=== PATIENT | male | born 1960 | race Caucasian/White ===

== ENCOUNTER 2018-11-30 16:41 | Emergency (ER) | payer BC, OTHER ==
[2018-11-30] MEDS ORDERED: Bacitracin Zinc 1 Packet ONE (17:03)
[2018-11-30] MEDS ORDERED: Lidocaine 1% (PF) 30 ML VIAL ONE (17:03)
--- NOTE | 2018-11-30 17:27 | RAD ---
3 views of the right fifth finger: 11/30/2018 COMPARISON: None HISTORY: Injury, crushed finger in a gate FINDINGS: There is soft tissue swelling involving the distal aspect of the fifth finger with an assoc iated laceration along the anterior lateral aspect, adjacent to the distal interphalangeal joint. No associated fracture or dislocation. No radiopaque foreign body. IMPRESSION: Prominent soft tissue injury involving the distal aspect of the fifth digit.
== END 2018-11-30 18:08 | disposition home or self-care (01) ==
LOC: NAV ERS 16:41
DX: S67.196A Crushing injury of right little finger, initial encounter (principal); S61.216A Laceration without foreign body of right little finger without damage to nail, initial encounter; F17.220 Nicotine dependence, chewing tobacco, uncomplicated; W23.0XXA Caught, crushed, jammed, or pinched between moving objects, initial encounter
CPT/HCPCS: 12002; J2001

== ENCOUNTER 2018-12-07 17:25 | Emergency (ER) | payer BC, OTHER | END 2018-12-07 17:50 | disposition home or self-care (01) | LOC: NAV ERS 17:25 | DX: S61.216D Laceration without foreign body of right little finger without damage to nail, subsequent encounter (principal); F17.220 Nicotine dependence, chewing tobacco, uncomplicated; X58.XXXD Exposure to other specified factors, subsequent encounter | CPT/HCPCS: 99282 ==